=== PATIENT | female | born 1995 | race Caucasian/White ===

== ENCOUNTER 2020-09-14 20:05 | Inpatient (IN) | payer OTHER ==
[2020-09-14] MEDS ORDERED: BUTORPHANOL TARTRATE 1 MG/ML VIAL IVPB PRN (21:15)
[2020-09-14] MEDS ORDERED: DINOPROSTONE 10 MG VAGINAL SUPPOSITORY VG ONE (21:20)
--- NOTE | 2020-09-14 21:40 | CONSULT ---
Consult - text type - Consultation Consultation Note: 25yo P0 for postdates IOL VSS, Afebrile VE l/c/p, vtx FHR 140's Category 1 FHR TOCO no ctxns Cervidil placed to posterior fornix as per Dr. Jefferson
[2020-09-14 22:10] LABS: POTASSIUM 4.1 mmol/L (3.5-5.1)
[2020-09-14 22:11] LABS: CALCIUM 9.2 mg/dL (8.5-10.1)
[2020-09-14 22:12] LABS: BLOOD UREA NITROGEN 12.2 mg/dL (7-18)
[2020-09-14 22:16] LABS: BASO % 0.3 % (0-2.0); CREATININE 0.6 mg/dL (0.55-1.3); EOS % 0.7 % (0-4.5); LYMPH % 17.4 % (8-40); MCH 28.2 pg (25.7-33.7); MCHC 33.3 g/dl (32.0-36.0); MEAN CELL VOLUME 84.6 fl (80-96); MONO % 8.5 % (3.8-10.2); NEUT % 73.1 % (42.8-82.8); PLATELET COUNT 271 K/MM3 (134-434); RBC 4.25 M/mm3 (3.60-5.2); RDW 14.5 % (11.6-15.6); WHITE BLOOD COUNT 7.2 K/mm3 (4.0-10.0)
--- NOTE | 2020-09-14 22:24 | HP ---
Past Medical History - Primary Care Physician PCP:: Ting Jefferson - Admission Chief Complaint: Postdates. 40+ weeks History of Present Illness: 25 yo EDC 09/09/2020 EGA 40.6 admitted for induction of labor hx of Herpes GBS neg History Source: Patient Limitations to Obtaining History: No Limitations - Past Medical History ...: 3 ...Para: 0 - Past Surgical History Hx Myomectomy: No Hx Transabdominal Cerclage: No Home Medications - Allergies Allergies/Adverse Reactions: Allergies Allergy/AdvReac Type Severity Reaction Status Date / Time No Known Allergies Allergy Verified 09/14/20 21:55 Review of Systems - Review of Systems Constitutional: reports: No Symptoms Eyes: reports: No Symptoms HENT: reports: No Symptoms Neck: reports: No Symptoms Cardiovascular: reports: No Symptoms Respiratory: reports: No Symptoms Gastrointestinal: reports: No Symptoms Genitourinary: reports: No Symptoms Breasts: reports: No Symptoms Reported Musculoskeletal: reports: No Symptoms Integumentary: reports: No Symptoms Neurological: reports: No Symptoms Endocrine: reports: No Symptoms Hematology/Lymphatic: reports: No Symptoms Psychiatric: reports: No Symptoms Physical Exam - Maternity Constitutional: Yes: Well Nourished, No Distress, Calm - Abdominal Exam/OB Number of Fetuses: Single Presentation: Vertex Contractions: No Category: I - Vaginal Exam/OB Dilatation (cm): closed Effacement (%): 50 Amniotic Membrane Status: Intact Presentation: Vertex/Position - Physical Exam Musculoskeletal: Yes: WNL Extremities: Yes: WNL Edema: No Psychiatric: Yes: WNL, Alert, Oriented Problem List - Problems (1) Post term at 41 weeks gestation Problems reviewed: Yes Code(s): O48.0 - POST-TERM ; Z3A.41 - 41 WEEKS GESTATION OF (2) Elective induction of labor planned Problems reviewed: Yes Code(s): FQU2745 - (3) Postmaturity , 40-42 weeks gestation Code(s): O48.0 - POST-TERM Assessment/Plan IU at 40 week psot dates Cat 1 Plan Admit cervidil
[2020-09-14 22:34] LABS: INR 1.02 (0.83-1.09); PROTHROMBIN TIME (PATIENT) 12.3 SEC (9.7-13.0)
[2020-09-14 22:37] LABS: ACTIVATED PTT 27.3 SECONDS (25.2-36.5)
[2020-09-14] MEDS ORDERED: LABETALOL HCL 200 MG TABLET (FP) ONE (23:25)
[2020-09-14] MEDS: LABETALOL HCL 200 MG TABLET (FP) PO PRN (23:28)
--- NOTE | 2020-09-14 23:45 | PN ---
Progress Note (short form) - Note Progress Note: Pt with elevated BP will start Labetalol 200mg Q 6 prn gestational HTN Problem List - Problems (1) Post term at 41 weeks gestation Code(s): O48.0 - POST-TERM ; Z3A.41 - 41 WEEKS GESTATION OF (2) Elective induction of labor planned Code(s): [id number] -
[2020-09-15 00:35] LABS: RETICULOCYTES 1.65 % (0.5-1.5)
[2020-09-15 00:52] LABS: URIC ACID 5.2 mg/dL (2.6-7.2)
[2020-09-15 02:56] VITALS: BMI 33.5
--- NOTE | 2020-09-15 03:01 | PN ---
Ante-Partal Exam - Subjective Subjective: Pt with mild cramping Vital Signs: Vital Signs Temperature 98.3 F 09/15/20 02:00 Pulse Rate 103 H 09/15/20 02:00 Respiratory Rate 20 09/15/20 02:00 Blood Pressure 111/68 09/15/20 02:00 O2 Sat by Pulse Oximetry (%) Bleeding: No Headache: No Visual changes: No Right upper quadrant pain: No - Exam during Labor Variability: Moderate Heart Rate Location: [facility] Category: I Monitor Decelerations: None Exam: Vaginal Dilatation (cm): closed Effacement (%): 50 Amniotic Membrane Status: Intact Presentation: Vertex - Intrapartum Hemorrhage Risk Risk Score: 0 Risk Level: Low Risk - Assessment/Plan Assessment/Plan: iup at 40.6 week cat [address] Hx of herpes not active Plan Cervidil
[2020-09-15] MEDS ORDERED: LABETALOL HCL 200 MG TABLET (FP) ONE ×2 (08:31→16:05)
[2020-09-15] MEDS: LABETALOL HCL 200 MG TABLET (FP) PO PRN ×3 (08:35→19:30)
[2020-09-15] MEDS: ELECTROLYTE-148 SOLN 1,000 ML IV SCH ×3 (08:45→22:40)
[2020-09-15] MEDS ORDERED: OXYTOCIN 30 UNITS in 0.9% NS 30 UNIT/500 ML INFUS.BAG IVPB ONE (10:17)
--- NOTE | 2020-09-15 10:22 | PN ---
Ante-Partal Exam - Subjective Subjective: Pt doing well Vital Signs: Vital Signs Temperature 98.3 F 09/15/20 07:00 Pulse Rate 106 H 09/15/20 09:03 Respiratory Rate 20 09/15/20 09:03 Blood Pressure 150/86 09/15/20 09:03 O2 Sat by Pulse Oximetry (%) 100 09/14/20 21:50 Bleeding: No Headache: No Visual changes: No Right upper quadrant pain: No - Contractions Contractions: Yes Intensity: Mild/Mod Monitor Mode: External - Exam during Labor Variability: Moderate Category: I Monitor Accelerations: Present Monitor Decelerations: None Exam: Vaginal Dilatation (cm): closed Effacement (%): 80 Amniotic Membrane Status: Intact Presentation: Vertex Station: -2 - Intrapartum Hemorrhage Risk Medium Risk Factors: None High Risk Factors: None Risk Score: 0 Risk Level: Low Risk - Assessment/Plan Assessment/Plan: post dates 40+ weeks Cat 1 Gestational HTN Plan labetalol 200mg Q 6 prn Pitocin aug
[2020-09-15] MEDS: OXYTOCIN 30 UNITS in 0.9% NS 30 UNIT/500 ML INFUS.BAG IVPB SCH (10:30)
[2020-09-15] MEDS ORDERED: OXYTOCIN 20 UNITS in 0.9% NS 20 UNIT/1,000 ML INFUS.BAG IV ONE (22:31)
--- NOTE | 2020-09-15 23:35 | PN ---
Ante-Partal Exam - Subjective Subjective: Pt on pitocin Vital Signs: Vital Signs Temperature 98.4 F 09/15/20 20:00 Pulse Rate 107 H 09/15/20 23:00 Respiratory Rate 18 09/15/20 23:00 Blood Pressure 128/84 09/15/20 23:00 O2 Sat by Pulse Oximetry (%) 100 09/14/20 21:50 Bleeding: No Headache: No Visual changes: No Right upper quadrant pain: No - Contractions Contractions: Yes Regularity: Regular Intensity: Moderate Monitor Mode: External - Exam during Labor Variability: Moderate Heart Rate Location: [facility] Category: I Monitor Accelerations: Present Monitor Decelerations: None Exam: Vaginal Dilatation (cm): 2 cm Effacement (%): 80 Amniotic Membrane Status: Intact Presentation: Vertex Station: -1 - Intrapartum Hemorrhage Risk Medium Risk Factors: None High Risk Factors: None Risk Score: 0 Risk Level: Low Risk - Assessment/Plan Assessment/Plan: gestational htn Cat 1 Pt on pitocin Post term Plan pit aug labetalol 200mg Q 6
[2020-09-16] MEDS ORDERED: TERBUTALINE SULFATE 1 MG/1 ML VIAL SQ ONE ×2 (00:16→03:15)
[2020-09-16] MEDS ORDERED: morphine SULFATE/PF 0.5 MG/ML (2cc Syringe - QUVA) ONE (00:54)
[2020-09-16] MEDS ORDERED: CITRIC ACID/SODIUM CITRATE 30 ML UNIT-DOSE CUP PO ONE (00:59)
--- NOTE | 2020-09-16 00:59 | PN ---
Ante-Partal Exam - Subjective Subjective: Pt with prolonged decel x 3 min case discussed with pt and BF advised CS Vital Signs: Vital Signs Temperature 98.3 F 09/16/20 00:00 Pulse Rate 98 H 09/16/20 00:00 Respiratory Rate 18 09/16/20 00:00 Blood Pressure 141/87 09/16/20 00:00 O2 Sat by Pulse Oximetry (%) 100 09/14/20 21:50 Bleeding: No Headache: No Visual changes: No Right upper quadrant pain: No - Contractions Regularity: Irregular Monitor Mode: External - Exam during Labor Variability: Moderate Category: II Exam: Vaginal Dilatation (cm): 2 Amniotic Membrane Status: Intact Presentation: Vertex - Intrapartum Hemorrhage Risk Medium Risk Factors: None High Risk Factors: None Risk Score: 0 Risk Level: Low Risk - Assessment/Plan Assessment/Plan: Cat 2 prolonged decel gestational HTN non reasurring tracing macrosomia pLan CS notify neonatalogist notify anesthesia
[2020-09-16] MEDS ORDERED: BENZOCAINE 28 GM HEMORRHOIDAL OINTMENT RC PRN (01:00)
[2020-09-16] MEDS ORDERED: BENZOCAINE 20% 57 GM BOTTLE TP PRN (01:00)
[2020-09-16] MEDS ORDERED: oxyCODONE HCL 5 MG TABLET PO PRN (01:00)
[2020-09-16] MEDS ORDERED: METHYLERGONOVINE MALEATE 0.2 MG/1 ML AMP IM PRN (01:00)
[2020-09-16] MEDS ORDERED: WITCH HAZEL 50% (TUCKS) 40 PAD/JAR PAD TP PRN (01:00)
[2020-09-16] MEDS ORDERED: diphenhydrAMINE HCL 25 MG CAPSULE (FP) PO PRN (01:00)
[2020-09-16] MEDS ORDERED: ceFAZolin SODIUM 1 GM VIAL ONE (01:10)
[2020-09-16] MEDS ORDERED: OXYTOCIN 10 UNITS/ML VIAL ONE (01:24)
[2020-09-16] MEDS ORDERED: KETOROLAC TROMETHAMINE 30 MG/1 ML VIAL ONE (01:24)
[2020-09-16] MEDS ORDERED: ONDANSETRON 4 MG/2 ML VIAL IVPUSH PRN (01:58)
[2020-09-16] MEDS ORDERED: ACETAMINOPHEN 1000 MG/100 ML VIAL (NON FORMULARY) IVPB ONE (01:59)
--- NOTE | 2020-09-16 02:31 | OP ---
Operative Note - Note: Operative Date: 09/16/20 Pre-Operative Diagnosis: Nonreassurring tracing. gestational hypertension. post dates. macrosomia Operation: Primary low transverse section Findings: Live male Nuchal cord x1 9 lbs 4 oz Post-Operative Diagnosis: Same as Pre-op Surgeon: Ting Jefferson Optical Mechanic Apprentice: Daniele West Anesthesia: Spinal Specimens Removed: placenta removed Estimated Blood Loss (mls): 500 Operative Report Dictated: Yes
[2020-09-16 02:39] LABS: CORD BASE EXCESS -2.5 mmol/L (0-2); CORD HCO3 25.6 mmHg (20-29); CORD PCO2 59.5 mmHg (30-78); CORD pH 7.252 (7.14-7.44)
[2020-09-16 02:42] LABS: CORD BASE EXCESS -2.3 mmol/L (0-2); CORD HCO3 23.5 mmHg (20-29); CORD PCO2 44.1 mmHg (30-78); CORD pH 7.344 (7.14-7.44)
[2020-09-16] MEDS ORDERED: OXYTOCIN 20 UNITS in 0.9% NS 20 UNIT/1,000 ML INFUS.BAG IV ONE ×2 (02:42→11:07)
[2020-09-16] MEDS: OXYTOCIN 20 UNITS in 0.9% NS 20 UNIT/1,000 ML INFUS.BAG IV SCH ×2 (03:24→09:25)
[2020-09-16] MEDS ORDERED: ACETAMINOPHEN INJECTION 100 ML IVPB ONE (03:27)
[2020-09-16] MEDS: ELECTROLYTE-148 SOLN 1,000 ML IV SCH (03:34)
[2020-09-16] MEDS: IBUPROFEN 800 MG/8 ML IJ IVPB PRN ×3 (04:48→21:41)
[2020-09-16] MEDS ORDERED: IBUPROFEN 800 MG/8 ML IJ IVPB ONE (04:51)
--- NOTE | 2020-09-16 08:45 | OP ---
DATE OF OPERATION: 09/16/2020 PREOPERATIVE DIAGNOSIS: Nonreassuring tracing, gestational hypertension, post dates and macrosomia. OPERATION: Primary low transverse section. POSTOPERATIVE DIAGNOSIS: Live male , nuchal cord x1, 9 pounds 4 ounces. SURGEON: Abrahan Jefferson MD LAST IRONER: JANES Dill ANESTHESIA: Spinal. ESTIMATED BLOOD LOSS: 500 mL. DESCRIPTION OF PROCEDURE: The patient was taken to the operating room, placed in the supine position, prepped and draped in the usual sterile fashion. A time-out was performed in accordance with hospital regulation. A Pfannenstiel skin incision was made with the scalpel. Cautery was then used to go through the layers of the abdominal wall to the level of the fascia. The fascia was cut in the midline and cautery was then used to open the fascia in a smiling fashion. Johanne was then used to bluntly and sharply dissect the rectus muscle off the fascia. The muscle was splint in the midline. The peritoneal cavity was then entered and carried upward and downward. A bladder retractor was then placed. A scalpel was then used to make a low transverse uterine incision. The incision was carried upward using bandage scissors. A live male was delivered in OP position. Nuchal cord x1 was reduced. The shoulders were delivered without difficulty. The cord was clamped and cut. Cord blood sampling was obtained. The infant was handed to the android architect. Cord pH obtained. The placenta was manually extracted from the uterus. The uterus was exteriorized and cleaned with clean lap pads. The uterine incision was then closed using 0 Biosyn suture, the first layer continuous interlocking and the second layer imbricating the first layer. Hemostasis was achieved. The tube and ovaries were noted to be normal. The uterus was interiorized. Abdominal cavity cleaned with clean lap pads. The peritoneum was closed using 0 Biosyn suture in a continuous stitch. The muscle was approximated in the midline using 0 Vicryl suture. The fascia was then closed using 0 Vicryl suture in 2 parts. The skin was then closed using 3-0 Vicryl in subcuticular fashion. The wound was washed and dressed. The patient tolerated the procedure well. Estimated blood loss was 500 mL. ABRAHAN JEFFERSON M.D. JUAN LUIS/[id number]
[2020-09-16] MEDS: OXYTOCIN 30 UNITS in 0.9% NS 30 UNIT/500 ML INFUS.BAG IVPB SCH (12:23)
[2020-09-16] MEDS: ACETAMINOPHEN 325 MG TABLET (FP) PO PRN (18:32)
[2020-09-16] MEDS: LABETALOL HCL 200 MG TABLET (FP) PO PRN (19:12)
[2020-09-17] MEDS ORDERED: BISACODYL 10 MG SUPP.RECT PR PRN (01:01)
[2020-09-17] MEDS: OXYTOCIN 20 UNITS in 0.9% NS 20 UNIT/1,000 ML INFUS.BAG IV SCH (01:54)
[2020-09-17] MEDS: ACETAMINOPHEN 325 MG TABLET (FP) PO PRN ×3 (02:02→14:01)
[2020-09-17] MEDS: oxyCODONE HCL 5 MG TABLET PO PRN ×2 (02:02→18:02)
[2020-09-17] MEDS: SIMETHICONE 80 MG TAB.CHEW (FP) PO PRN ×4 (02:03→18:01)
[2020-09-17 08:05] LABS: HEMATOCRIT 29.9 % (32.4-45.2); HEMOGLOBIN 9.7 GM/dL (10.7-15.3); MCH 27.9 pg (25.7-33.7); MCHC 32.6 g/dl (32.0-36.0); MEAN CELL VOLUME 85.5 fl (80-96); MEAN PLT VOLUME 7.7 fl (7.5-11.1); PLATELET COUNT 225 K/MM3 (134-434); RBC 3.49 M/mm3 (3.60-5.2); RDW 15.2 % (11.6-15.6); WHITE BLOOD COUNT 7.8 K/mm3 (4.0-10.0)
[2020-09-17] MEDS: IBUPROFEN 600 MG TABLET (FP) PO PRN ×2 (14:01→18:01)
--- NOTE | 2020-09-17 23:46 | PN ---
Progress Note (SOAP) - Subjective Chief Complaint: Pt doing well - Current Medications Current Medications: Active Medications Acetaminophen (Tylenol -) 650 mg PO Q4H PRN PRN Reason: FEVER Last Admin: 09/17/20 14:01 Dose: 650 mg Documented by: Benzocaine (Americaine 20% [place] -) 1 spray TP PRN PRN PRN Reason: Pain - Topical Benzocaine (Americaine Ointment -) 1 applic RC PRN PRN PRN Reason: Pain - Topical Bisacodyl (Dulcolax Suppository -) 10 mg AL PRN PRN PRN Reason: CONSTIPATION Diphenhydramine HCl (Benadryl -) 25 mg PO Q6H PRN PRN Reason: FOR ITCHING Diphenhydramine HCl (Benadryl Injection -) 25 mg IVPUSH Q4H PRN PRN Reason: Pruritis Last Admin: 09/17/20 01:01 Dose: 25 mg Documented by: Oxytocin/Sodium Chloride (Normal Saline+20 Units Oxytocin -) 20 unit in 1,000 mls @ 125 mls/hr IV ASDIR GORDON Last Admin: 09/17/20 01:54 Dose: Not Given Documented by: Ibuprofen (Motrin -) 600 mg PO Q4H PRN PRN Reason: FEVER Last Admin: 09/17/20 18:01 Dose: 600 mg Documented by: Ibuprofen (Caldolor Injection -) 800 mg IVPB Q6H PRN PRN Reason: Fever - If PO not effective. Last Admin: 09/16/20 21:41 Dose: 800 mg Documented by: Labetalol HCl (Normodyne -) 200 mg PO Q6H PRN PRN Reason: HYPERTENSION Last Admin: 09/16/20 19:12 Dose: 200 mg Documented by: Methylergonovine Maleate (Methergine Injection -) 0.2 mg IM Q4H PRN PRN Reason: EXCESSIVE BLEEDING Ondansetron HCl (Zofran Injection) 4 mg IVPUSH Q4H PRN PRN Reason: NAUSEA Oxycodone HCl (Roxicodone -) 5 mg PO Q4H PRN PRN Reason: PAIN LEVEL 1 - 3 Last Admin: 09/17/20 18:02 Dose: 5 mg Documented by: Oxycodone HCl (Roxicodone -) 10 mg PO Q4H PRN PRN Reason: PAIN LEVEL 4 - 6 Last Admin: 09/17/20 07:52 Dose: 10 mg Documented by: Senna/Docusate Sodium (Pericolace -) 2 tablet PO HS PRN PRN Reason: CONSTIPATION Simethicone (Mylicon -) 80 mg PO Q4H PRN PRN Reason: GAS Last Admin: 09/17/20 18:01 Dose: 80 mg Documented by: Alex Verael/Glycerin (Tucks Pads -) 1 pad TP PRN PRN PRN Reason: Pain - Topical - Objective Vital Signs: Vital Signs Temperature 98.5 F 09/17/20 21:00 Pulse Rate 112 H 09/17/20 21:00 Respiratory Rate 18 09/17/20 21:00 Blood Pressure 124/91 09/17/20 21:00 O2 Sat by Pulse Oximetry (%) 96 09/17/20 13:28 Constitutional: Yes: Well Nourished, No Distress ....Post : Yes: Uterus firm, Uterus non-tender Musculoskeletal: Yes: WNL Extremities: Yes: WNL Wound/Incision: Yes: Clean/Dry, Well Approximated Neurological: Yes: WNL, Alert, Oriented Labs Lab Results: CBCD WBC 7.8 K/mm3 (4.0-10.0) 09/17/20 07:35 RBC 3.49 M/mm3 (3.60-5.2) L 09/17/20 07:35 Hgb 9.7 GM/dL (10.7-15.3) L 09/17/20 07:35 Hct 29.9 % (32.4-45.2) L D 09/17/20 07:35 MCV 85.5 fl (80-96) 09/17/20 07:35 MCHC 32.6 g/dl (32.0-36.0) 09/17/20 07:35 RDW 15.2 % (11.6-15.6) 09/17/20 07:35 Plt Count 225 K/MM3 (134-434) 09/17/20 07:35 MPV 7.7 fl (7.5-11.1) 09/17/20 07:35 CMP Sodium 135 mmol/L (136-145) L 09/14/20 21:30 Potassium 4.1 mmol/L (3.5-5.1) 09/14/20 21:30 Chloride 103 mmol/L (98-107) 09/14/20 21:30 Carbon Dioxide 24 mmol/L (21-32) 09/14/20 21:30 Anion Gap 8 MMOL/L (8-16) 09/14/20 21:30 BUN 12.2 mg/dL (7-18) 09/14/20 21:30 Creatinine 0.6 mg/dL (0.55-1.3) 09/14/20 21:30 Random Glucose 67 mg/dL (74-106) L 09/14/20 21:30 Calcium 9.2 mg/dL (8.5-10.1) 09/14/20 21:30 AST 25 U/L (15-37) 09/15/20 00:06 ALT 22 U/L (13-61) 09/15/20 00:06 Problem List - Problems (1) Post term at 41 weeks gestation Code(s): O48.0 - POST-TERM ; Z3A.41 - 41 WEEKS GESTATION OF (2) Elective induction of labor planned Code(s): [id number] - (3) Postmaturity , 40-42 weeks gestation Code(s): O48.0 - POST-TERM (4) History of low transverse section Problems reviewed: Yes Code(s): Z98.891 - HISTORY OF UTERINE SCAR FROM PREVIOUS SURGERY Assessment/Plan SP CS POD1 Plan OOB Continur present management
[2020-09-18] MEDS: SIMETHICONE 80 MG TAB.CHEW (FP) PO PRN ×2 (01:10→08:05)
[2020-09-18] MEDS: oxyCODONE HCL 5 MG TABLET PO PRN ×2 (01:10→08:04)
[2020-09-18] MEDS: IBUPROFEN 600 MG TABLET (FP) PO PRN (01:10)
[2020-09-18] MEDS: ACETAMINOPHEN 325 MG TABLET (FP) PO PRN (08:05)
[2020-09-18] MEDS: LABETALOL HCL 200 MG TABLET (FP) PO PRN (09:50)
[2020-09-18 10:14] VITALS: BP 144/82; PULSE 101; TEMP 98.2
--- NOTE | 2020-09-18 10:47 | PATH ---
Surgical Pathology Report Patient Name: KE PAYNE Med. Rec. #: [id number] /Age/Gender: 1995 (Age: 25) / F Account: [id number] Location: [facility] OBS/AUTOMOTIVE CENTER MANAGER Taken: 09/16/2020 Received: 09/16/2020 Reported: 09/18/2020 Physicians: Ting Jefferson M.D. Specimen(s) Received PLACENTA Clinical History , 41 weeks, nonreassuring heart rate Final Diagnosis PLACENTA: THIRD TRIMESTER PLACENTA WITH SUBCHORIONIC FIBRIN DEPOSITION. TRIVASCULAR CORD. MEMBRANES WITH NO DIAGNOSTIC ABNORMALITIES. Electronically Signed Gila Paredes M.D. Gross Description The specimen is received fresh labeled placenta and is a 610 gram, 20.5 x 19.5 x 2.2 cm. placenta with attached membranes and umbilical cord. The attached membranes are wilburn, translucent with focal opacities and insert marginally. The umbilical cord measures 26.5 cm. in length and averages 1.0 cm. in diameter. The cord inserts eccentrically, 6 cm. to the nearest margin. No true knots or strictures are identified. Cut surface of the umbilical cord reveals 3 vessels. The surface is crawford blue with moderate fibrin deposition and appropriate caliber vessels. The maternal surface is red-brown with focal defects. Sectioning reveals red-brown, spongy parenchyma. No lesions are identified. Manufacturing Project Manager sections are submitted in three cassettes as follows: 1- membrane rolls and umbilical cord; 2-3- full thickness sections of placenta. /09/16/2020 saudi/09/16/2020
[2020-09-18] MEDS ORDERED: SENNOSIDES/DOCUSATE COMBO (SENNA PLUS) TABLET (UD) PO PRN (22:00)
--- NOTE | 2020-09-20 16:16 | DS ---
Physical Exam-PHYSICIAN SUPPORT COORDINATOR Vital Signs: Vital Signs Temperature 98.2 F 09/18/20 09:45 Pulse Rate 101 H 09/18/20 09:45 Respiratory Rate 20 09/18/20 09:45 Blood Pressure 144/82 09/18/20 09:45 O2 Sat by Pulse Oximetry (%) 99 09/18/20 09:45 Constitutional: Yes: Well Nourished, No Distress Cardiovascular: Yes: WNL Respiratory: Yes: WNL ....Post : Yes: Uterus firm, Uterus non-tender Breast(s): Yes: WNL Musculoskeletal: Yes: WNL Extremities: Yes: WNL Edema: No Wound/Incision: Yes: Clean/Dry, Well Approximated Neurological: Yes: WNL, Alert, Oriented Labs: CBC, BMP 09/17/20 07:35 09/14/20 21:30 Delivery - Delivery Section: Primary, Low Flap Transverse Type of Anesthesia: Spinal EBL (cc): 600 Delivery, Single - Stages of Labor Date of Delivery: 09/16/20 Time of Delivery: 01:20 Time Placenta Delivered: : Placenta: Yes: Spontaneous - Condition of Infant Advertising Specialist/Global Ceo Present: Yes Name: Meena Cuello Infant Gender: Male Weight: 9 lb 4 oz Position: Left, OA Total Hours ROM (Hrs/Mins): 2min - 1 Minute Total Score: 9 5 Minutes Total Score: 9 - Feeding Plan Initial Plan: Exclusive throughout hospitalization Discharge Summary Problems reviewed: Yes Reason For Visit: INDUCTION OF LABOR Procedures: Principal: Section Hospital Course: Unremarkable Condition: Stable - Instructions Diet, Activity, Other Instructions: Physical activity Resume your normal everyday activity as tolerated no heavy lifting or exercise until seen by your surgeon. You may walk unlimited celina of and climb stairs. You may resume driving the car when you feel safe and comfortable behind the wheel. No sexual activity as instructed. Wound care If you have a bandage, leave it on, and keep dry for 48-72 hours. After that time discard the outer bandage. If they are tapes on the skin under the out of bandage leave them in place. They will peel off in the next 7 to 10 days. Do Not Peel them off. You may shower the day after surgery. If there are tapes present on the skin, you may shower over them. Diet There are no dietary restrictions. Eat healthy, high-fiber foods. Drink 6 to 8 glasses of liquid each day. This will assist in keeping your bowels are regular. Pain management You may take Tylenol or acetaminophen or Ibuprofen (for example, Motrin, Advil etc.) from my pain prescription medication is ordered should be taken as prescribed for moderate to severe pain. Call MD for any of the following: Severe pain not relieved by medication Fever of 101 or higher Excessive bleeding or drainage on dressing Inability to urinate Referrals: Ting Jefferson MD [Staff Physician] - Disposition: HOME - Home Medications Comprehensive Discharge Medication List: Ambulatory Orders Ibuprofen [Motrin -] 600 mg PO TID #21 tablet 09/17/20
== END 2020-09-18 12:10 | disposition home or self-care (01) | DRG 540 ==
LOC: JLDR 20:05 → J3W 09-16 13:49
PROVIDERS: ADMIT Obstetrics & Gynecology; ATTEND Obstetrics & Gynecology
PROC: 3E0P7VZ Introduction of Hormone into Female Reproductive, Via Natural or Artificial Opening (ICD-10-PCS; 2020-09-14)
PROC: 10D00Z1 Extraction of Products of Conception, Low, Open Approach (ICD-10-PCS; principal; 2020-09-16)
DX: O76 Abnormality in fetal heart rate and rhythm complicating labor and delivery (principal); O48.0 Post-term pregnancy; O13.4 Gestational [pregnancy-induced] hypertension without significant proteinuria, complicating childbirth; O36.63X0 Maternal care for excessive fetal growth, third trimester, not applicable or unspecified; O69.81X0 Labor and delivery complicated by cord around neck, without compression, not applicable or unspecified; Z3A.41 41 weeks gestation of pregnancy; Z37.0 Single live birth; Z86.19 Personal history of other infectious and parasitic diseases; Z87.42 Personal history of other diseases of the female genital tract
CPT/HCPCS: 36415; 36600; 80048; 82803; 82977; 83010; 84450; 84460; 84550; 85025; 85027; 85032; 85045; 85610; 85730; 86780; 86850; 86900; 86901; 87340; 87389; 88307-TC; C9803; J0131; U0003